=== PATIENT | female | born 1990 | race Caucasian/White ===

== ENCOUNTER 2018-10-16 15:28 | Emergency (ER) | payer SELFPAY ==
--- NOTE | 2018-10-16 16:13 | ER Document Report ---
ED Medical Screen (RME) - General Chief Complaint: Psych Problem Stated Complaint: PSYCH Time Seen by Provider: 10/16/18 15:57 Mode of Arrival: Ambulatory Information source: Patient, Relative - Mother Notes: Patient is a 28-year-old female presenting to the emergency department chief complaint of paranoia and hallucinations. Mother is with patient and reports that patient used methamphetamines 4 days ago. She reports that patient has had hallucinations and paranoia since then. Patient denies use of any other drugs, denies any history of mental illness. Patient denies any suicidal or homicidal ideations. I have greeted and performed a rapid initial assessment of this patient. A comprehensive ED assessment and evaluation of the patient, analysis of test results and completion of the medical decision making process will be conducted by additional ED providers. I have specifically instructed the patient or family members with the patient to immediately return to any nursing staff should anything change in the patient's condition or with their chief complaint. This medical record was dictated with voice recognizing software. There may be grammatical, syntax errors that are unintended. Physical Exam - Vital signs Vitals: Temp Pulse Resp BP Pulse Ox 98.7 F 92 18 117/78 99 10/16/18 15:48 10/16/18 15:48 10/16/18 15:48 10/16/18 15:48 10/16/18 15:48 Course - Vital Signs Vital signs: Temp Pulse Resp BP Pulse Ox 98.7 F 92 18 117/78 99 10/16/18 15:48 10/16/18 15:48 10/16/18 15:48 10/16/18 15:48 10/16/18 15:48
[2018-10-16 16:50] LABS: ABSOLUTE BASOPHILS # (AUTO) 0.1 10^3/uL (0.0-0.2); ABSOLUTE LYMPHOCYTES (AUTO) 2.1 10^3/uL (0.5-4.7); ABSOLUTE MONOCYTES (AUTO) 0.8 10^3/uL (0.1-1.4); ABSOLUTE NEUT (AUTO) 8.7 10^3/uL (1.7-8.2); BASOPHILS % (AUTO) 0.6 % (0-2); EOSINOPHILS % (AUTO) 0.3 % (0-6); HEMATOCRIT 38.9 % (36.0-47.0); LYMPHOCYTES % (AUTO) 17.8 % (13-45); MEAN CORPUSCULAR HEMOGLOBIN 28.6 pg (27.0-33.4); MEAN CORPUSCULAR HGB CONC 33.4 g/dL (32.0-36.0); MEAN CORPUSCULAR VOLUME 86 fl (80-97); MONOCYTES % (AUTO) 7.1 % (3-13); PLATELET COUNT 301 10^3/uL (150-450); RED BLOOD COUNT 4.55 10^6/uL (3.72-5.28); RED CELL DISTRIBUTION WIDTH 13.1 % (11.5-14.0); SEGMENTED NEUTROPHILS % (AUTO) 74.2 % (42-78); TOTAL CELLS COUNTED % (AUTO) 100 %; WHITE BLOOD COUNT 11.7 10^3/uL (4.0-10.5)
--- NOTE | 2018-10-16 16:51 | PSYCHOLOGICAL NOTE ---
Psych Note - Psych Note Date seen by psych provider: 10/16/18 Time seen by psych provider: 15:10 - Collateral male family friend at 1510 Psych Note: Presenting Problem: Paranoid (mother had to convince patient to check in), delusional (woke up in the middle of the night saying she had wires coming out of her). During Triage mother and patient noted meth use 4 days ago and current presentation since. Diagnosis: Meth Induced Psychosis Medication recommendations made by the psychiatric medical provider, Dr. Sybil MD., includes: Add Haldol 5MG twice a day for psychosis/mood stabilization Add Cogentin 1MG daily to curb tremor side effects often associated with antipsychotic medication Impression/PLan: 24 Hour IVC Petition completed and signed by Dr. Clark due to presentation in the ED, difficulty getting patient to check in and family/friend report no significant MH Hx. Consulted with Dr. Lewis regarding the management and care of patient.
[2018-10-16 17:18] LABS: ALBUMIN 4.7 g/dL (3.5-5.0); ALKALINE PHOSPHATASE 70 U/L (38-126); ANION GAP 10 (5-19); ASPARTATE AMINO TRANSFERASE 22 U/L (14-36); BILIRUBIN,DIRECT 0.3 mg/dL (0.0-0.4); BILIRUBIN,TOTAL 0.7 mg/dL (0.2-1.3); BLOOD UREA NITROGEN 3 mg/dL (7-20); CARBON DIOXIDE 27 mmol/L (22-30); CHLORIDE 102 mmol/L (98-107); GLUCOSE 103 mg/dL (75-110); POTASSIUM 3.4 mmol/L (3.6-5.0); TOTAL PROTEIN 7.6 g/dL (6.3-8.2)
[2018-10-16 17:21] LABS: ACETAMINOPHEN < 10 ug/mL (10-30); ALCOHOL < 10 mg/dL (NONE DETECTED); SALICYLATE < 1.0 mg/dL (2.0-20.0)
--- NOTE | 2018-10-16 18:36 | ER Document Report ---
ED General - General Chief Complaint: Psych Problem Stated Complaint: PSYCH Time Seen by Provider: 10/16/18 15:57 Mode of Arrival: Ambulatory TRAVEL OUTSIDE OF THE [place] IN LAST 30 DAYS: No - HPI Notes: Patient is a 28-year-old female who presents to the emergency department for e valuation with mother. Evidently she has been increasingly paranoid. She believes her house was wired. She is afraid someone is trying to get her. This is all started since using crystal meth about 4 days ago. The patient states she had been clean from opiates and heroin for some time when she used meth a few days ago. The mother believes it is "pressure from the boyfriend." The patient's boyfriend, who is living with her currently, does use drugs heavily per the patient. She lost her job a few months ago secondary to drug use. She denies any suicidal or homicidal ideation. No visual or auditory hallucination. She denies any pain at this time. She has not eaten in 4 days. - Related Data Allergies/Adverse Reactions: No Known Allergies Allergy (Verified 10/16/18 16:09) Past Medical History - General Information source: Patient, Relative - Mother - Social History Smoking Status: Current Every Day Smoker Chew tobacco use (# tins/day): No Frequency of alcohol use: Occasional Drug Abuse: Methamphetamine Family History: Reviewed & Not Pertinent Patient has suicidal ideation: No Patient has homicidal ideation: No Renal/ Medical History: Denies: Hx Peritoneal Dialysis Review of Systems - Review of Systems Constitutional: See HPI EENT: No symptoms reported Cardiovascular: No symptoms reported Respiratory: No symptoms reported Gastrointestinal: No symptoms reported Genitourinary: No symptoms reported Musculoskeletal: No symptoms reported Skin: No symptoms reported Neurological/Psychological: See HPI Physical Exam - Vital signs Vitals: Temp Pulse Resp BP Pulse Ox 98.7 F 92 18 117/78 99 10/16/18 15:48 10/16/18 15:48 10/16/18 15:48 10/16/18 15:48 10/16/18 15:48 - Notes Notes: This is a pleasant 28-year-old female who appears her stated age in no acute distress. She is extremely guarded, with diminished eye contact. She is very hesitant to answer questions, but eventually does so. Vital signs reviewed, please refer to chart. Head is normocephalic, atraumatic. Pupils equal round, reactive to light. Neck is supple without meningismus. Heart is regular rate and rhythm. Lungs are clear to auscultation bilaterally. Abdomen is soft, nontender, normoactive bowel sounds throughout. Extremities without cyanosis, clubbing. Posterior calves are nontender. Peripheral pulses are equal. Skin is warm and dry. Patient is awake, alert, neurological exam is nonfocal. Course - Re-evaluation Re-evalutation: 10/16/18 18:35 Patient presents emergency department for evaluation. IVC order was signed. At this point patient is stable. Her laboratory investigations revealed no significant abnormality in her lab work. I am still waiting on her urine, but I do not suspect any significant findings. Patient is medically cleared. Will observe overnight and await psychiatric recommendations. - Vital Signs Vital signs: Temp Pulse Resp BP Pulse Ox 98.7 F 92 18 117/78 99 10/16/18 15:48 10/16/18 15:48 10/16/18 15:48 10/16/18 15:48 10/16/18 15:48 - Laboratory Result Diagrams: 10/16/18 16:20 10/16/18 16:20 Laboratory results interpreted by me: 10/16/18 10/16/18 16:20 16:20 WBC 11.7 H Absolute Neutrophils 8.7 H Potassium 3.4 L BUN 3 L Salicylates < 1.0 L Acetaminophen < 10 L Discharge - Discharge Clinical Impression: Paranoia, Substance abuse Condition: Stable Disposition: OTHER
[2018-10-16] MEDS: HALOPERIDOL 5 MG TABLET PO SCH (19:54)
[2018-10-16 20:36] LABS: APPEARANCE,URINE CLEAR; BILIRUBIN,URINE NEGATIVE (NEGATIVE); COLOR,URINE STRAW; GLUCOSE, URINE NEGATIVE (NEGATIVE); KETONES,URINE NEGATIVE (NEGATIVE); LEUKOCYTE ESTERASE,URINE NEGATIVE (NEGATIVE); NITRITE,URINE NEGATIVE (NEGATIVE); PROTEIN,URINE NEGATIVE (NEGATIVE); URINE SPECIFIC GRAVITY 1.002; UROBILINOGEN,URINE NEGATIVE mg/dL (<2.0)
--- NOTE | 2018-10-16 20:41 | EKG REPORT ---
SEVERITY:- BORDERLINE ECG - SINUS RHYTHM BORDERLINE T ABNORMALITIES, ANT-LAT LEADS : Confirmed by: Emani Bartholomew MD 16-Oct-2018 20:40:45
[2018-10-16 20:51] LABS: URINE AMPHETAMINES SCREEN NEGATIVE; URINE BARBITURATES SCREEN NEGATIVE; URINE BENZODIAZEPINES SCREEN NEGATIVE; URINE COCAINE SCREEN NEGATIVE; URINE MARIJUANA (THC) SCREEN NEGATIVE; URINE METHADONE SCREEN NEGATIVE; URINE PHENCYCLIDINE SCREEN NEGATIVE
[2018-10-17] MEDS ORDERED: ACETAMINOPHEN 325 MG TABLET PO ONE (04:09)
--- NOTE | 2018-10-17 10:07 | ER Document Report ---
Doctor's Note Notes: 10/17/18 10:05 Patient seen and examined. This morning patient remains elusive in regards to answering questions. She seems to pause, pondering her answers very carefully, and then is not very forthcoming with information. I asked her about some issues overnight with nursing, she stated that there were not any. The patient states she would like to leave. I spoke with her mother about this as well. Mother and her live in the same apartment building. Currently the patient's daughter is staying with her grandmother. There was some question as to whether or not the boyfriend would still be in the picture. Patient's mother states she has asked him to leave, patient almost reluctantly admitted that this was a good idea, but that she would listen to her mother. On physical exam this is a disheveled 28-year-old female who appears her stated age. She is very guarded. Pupils are equal round, reactive to light. Heart is regular rhythm, lungs are clear station bilaterally. In short I do believe this patient is still suffering from psychosis as a result of methamphetamine use. I am concerned that she is not responding to medications as quickly as it been hoped. We will discuss options with patient and mother, but consider keeping the patient here for further observation.
[2018-10-17] MEDS: BENZTROPINE MESYLATE 1 MG TABLET PO SCH (10:29)
[2018-10-17] MEDS: HALOPERIDOL 5 MG TABLET PO SCH (10:29)
[2018-10-18] MEDS: CHLORPROMAZINE HCL 50 MG TABLET PO SCH ×2 (01:08→09:45)
--- NOTE | 2018-10-18 08:58 | PSYCHOLOGICAL NOTE ---
Psych Note - Psych Note Date seen by psych provider: 10/17/18 Psych Note: Presenting Problem: Paranoid, delusional, meth use 4 days ago and current presentation since. She seemed to worsen overnight into this morning with increased paranoia and delusional thinking. Spoke to mother in person not in patient's presence. She has a LD, cannot read and write well, mother thinks low IQ but has not been tested in a long time. Mother stated regardless patient was able to have discussions, understand things and carry on dialogue conversation. Mother noted a history of experimenting with drugs but nothing regular. She stated the boyfriend got out of [facility] 6 months ago and things went down hill for patient. She denied previous MH treatment to include inpatient. She stated patient admitted to using Meth. UDS negative so comment of use 4 days ago is likely. Mother stated she resides next to patient in the same apartment complex that she own. She also noted other family that resides close so patient would not be alone once able to go home. Diagnosis: Meth Induced Psychosis Medication recommendations made by the psychiatric medical provider, Dr. Sybil MD., includes: Discontinue Haldol 5MG twice a day for psychosis/mood stabilization Add Thorazine 50MG twice a day for psychosis/mood stabilization Continue Cogentin 1MG daily to curb tremor side effects often associated with antipsychotic medication Impression/PLan: Recommendation to hold overnight again for observation. Medication adjusted to better manage psychosis. If cleared up in the morning will plan to discharge. Consulted with Dr. Lewis regarding the management and care of patient. ED Physician in agreement with recommendations.
[2018-10-18] MEDS: BENZTROPINE MESYLATE 1 MG TABLET PO SCH (09:45)
[2018-10-18] MEDS ORDERED: POTASSIUM CHLORIDE 10 MEQ CAPSULE.ER PO ONE (09:50)
--- NOTE | 2018-10-18 09:54 | PSYCHOLOGICAL NOTE ---
Psych Note - Psych Note Date seen by psych provider: 10/18/18 Time seen by psych provider: 08:50 - Chart review at 0850. Evaluation with mother present from [id number]. Psych Note: Presenting Problem: Paranoid, delusional, meth use 4 days ago and current presentation since. Overnight documentation indicated patient slept throughout the night uninterrupted. Today patient got a shower. She stated "a shower felt good." She was able to answer questions when addressed and carry on dialogue conversation. She made good eye contact. Mother noted patient was a different person. She stated "she is talking, smiling and even asked what happened to her hair." Patient was alert and oriented x5, had linear thinking, was able to engage in discussion and carry on conversation which was within normal limits for rate/tone/prosody, did not appear to be responding to internal stimuli. She denied SI/HI. Mother at bedside and has been present often. There is other family that resides close to them. Diagnosis: Meth Induced Psychosis Impression/Plan: Patient is cleared from acute psychiatric services. She was no longer responding to internal stimuli, had good eye contact, answered questions, carried on dialogue conversation and was alert and oriented x5. Mother mentioned patient getting reconnected with [facility] and provided the outpatient MH resource sheet with [facility] KALI highlighted. Mother a natural support, part of plan of care and transported patient home. Consulted with Dr. Lewis regarding the management and care of patient. ED Physician in agreement with recommendations.
--- NOTE | 2018-10-18 10:05 | ER Document Report ---
Doctor's Note Notes: 10/18/18 10:04 Rounds: Chart reviewed and patient interviewed. Patient being treated for paranoia, delusions, and hallucinations which are felt to have been related to the patient's taking methamphetamine 4 days prior. This morning, patient is acting back her usual self. Mother says that she seems to be normal for her n ow. Patient never expressed any suicidal thoughts. Lab studies showed a potassium of 3.4 and giving her 40 mEq of KCl. Her white count was an unconcerning 11,700. All other lab studies were essentially normal. Vital signs were all normal. Patient appears to be medically stable for transfer or discharge. Nirmala Oconnor MD
[2018-10-18 10:23] VITALS: BP 110/63
== END 2018-10-18 10:23 | disposition home or self-care (01) ==
LOC: ER 15:28
DX: F22 Delusional disorders (principal); R44.3 Hallucinations, unspecified; F15.90 Other stimulant use, unspecified, uncomplicated; F17.200 Nicotine dependence, unspecified, uncomplicated
CPT/HCPCS: 93005; 99285; 36415; 80307 ×4; 84703; 85025; 80053; 81001; 93010; J3490